=== PATIENT | male | born 1955 | race Caucasian/White ===

== ENCOUNTER 2016-10-07 02:35 | Emergency (ER) | payer BC ==
[2016-10-07] MEDS ORDERED: ASPIRIN 81 MG CHEWABLE TAB PO ONE (02:39)
--- NOTE | 2016-10-07 02:51 | CPEKG ---
Heart Rate: 80 RR Interval: 750 P-R Interval: 180 QRSD Interval: 106 QT Interval: 456 QTC Interval: 527 P Roxana: 45 QRS Roxana: 9 T Wave Roxana: 89 EKG Severity - ABNORMAL ECG - EKG Impression: SINUS RHYTHM EKG Impression: PROLONGED QT INTERVAL EKG Impression: No acute ischemic changes; baseline artifact Electronically Signed By: Mar Jett 07-Oct-2016 05:11:45
[2016-10-07 02:56] LABS: % IMMATURE GRANULYOCYTES 0.5 % (0.0-1.1); ABSOLUTE IMMATURE GRANULOCYTES 0.05 10^3/uL (0.00-0.10); ADD DIFF? NO; ADD MORPH? NO; ADD SCAN? NO; ATYPICAL LYMPHOCYTE FLAG 10 (0-99); FRAGMENT RBC FLAG 0 (0-99); HEMATOCRIT 41.3 % (40.0-51.0); HEMOGLOBIN 13.8 g/dL (13.7-17.5); LEFT SHIFT FLG 10 (0-99); LIPEMIA HEMOLYSIS FLAG 80 (0-99); MEAN CELL HEMOGLOBIN 29.9 pg (27.9-34.1); MEAN CELL HEMOGLOBIN CONCENTR. 33.4 g/dL (32.4-36.7); MEAN CELL VOLUME 89.6 fL (81.5-99.8); MEAN PLATELET VOLUME 9.6 fL (8.7-11.7); PLATELET CLUMPS FLAG 0 (0-99); PLATELET COUNT 239 10^3/uL (150-400); RED BLOOD CELL COUNT 4.61 10^6/uL (4.40-6.38); RED CELL DISTRIBUTION WIDTH 12.9 % (11.5-15.2)
[2016-10-07] MEDS ORDERED: NITROGLYCERIN 0.4 MG BTL SL ONE ×2 (03:03→03:06)
[2016-10-07] MEDS ORDERED: NS 1,000 ML IV ONE (03:04)
[2016-10-07 03:07] LABS: INR 0.97 (0.83-1.16); PROTIME(PATIENT) 12.6 SEC (12.0-15.0)
[2016-10-07 03:08] LABS: APTT 26.1 SEC (23.0-38.0)
--- NOTE | 2016-10-07 03:12 | EDPHY ---
H & P Stated Complaint: Right chest and back pain Time Seen by Provider: 10/07/16 02:38 HPI/ROS: This 61-year-old male with past medical history of hyperlipidemia and diabetes mellitus, here visiting relatives from [place], presents to the emergency department tonight with his for complaints of right-sided back pain radiating up into his neck and into his right chest since 10:00 p.m. last evening. He rates the discomfort at 8/10. The pain also causes his chest to feel tight diffusely and diffuse abdominal discomfort as well. He took acetaminophen and tried to sleep but the discomfort is worse when he lies flat. He has some mild shortness of breath with the pain. He has no nausea or vomiting. He has felt diaphoretic. He denies jaw pain or pain in his shouders or arms. He has not had a fever, chills, cough, dysuria or diarrhea. He denies recent illness. Eight years ago he had similar neck pain and had a cardiac workup including a cardiac catheterization which was negative. REVIEW OF SYSTEMS: Constitutional: No fever, no chills. Eyes: No discharge. ENT: No sore throat. Respiratory: No cough. Cardiac: No palpitations. Gastrointestinal: No nausea, no vomiting. Genitourinary: No hematuria or dysuria. Musculoskeletal: No calf pain or swelling. Skin: No rashes. Neurological: No headache. The remainder of the review of systems is negative. Source: Patient Exam Limitations: No limitations - Medical/Surgical History PMH: PMH: High cholesterol, DM PSH: Belen, Vasectomy, Tonsillectomy FH: Father- history of CABG (no premature CAD); Mother -Emphysema, CHF NKDA; no contrast allergy Meds: Lipitor, Metformin (does not take phosphodiesterase inhibitors, does not take daily aspirin) Hx Asthma: No Hx Chronic Respiratory Disease: No Hx Diabetes: Yes Hx Cardiac Disease: No Hx Renal Disease: No Hx Cirrhosis: No Hx Alcoholism: No Hx HIV/AIDS: No Hx Splenectomy or Spleen Trauma: No - Family History Significant Family History: Heart disease, COPD (emphysema), Other (No premature CAD) - Social History Smoking Status: Never smoked Alcohol Use: Occasionally Drug Use: None Additional Social History: ; Lives in [place] - Physical Exam Exam: General Appearance: Alert and Oriented, moderate distress. Eyes: Pupils equal and round no pallor or injection. ENT, Mouth: Mucous membranes are moist. No erythema or exudate. Uvula midline. Neck: supple, no JVD, no meningeal signs. No increase in discomfort with palpation. Respiratory: There are no retractions, lungs are clear to auscultation. No rales, rhonchi or wheezing. Cardiovascular: Regular rate and rhythm. No murmurs, gallops or rubs. Gastrointestinal: Abdomen is slightly distended and mildly diffuse uncomfortable to palpation, no masses, bowel sounds normal. Neurological: Awake and alert, sensory and motor exams grossly normal. Skin: Warm and dry, no rashes. Musculoskeletal: No clubbing, cyanosis or edema. No calf swelling, warmth, cords or erythema. Moves all extremities well. Neuro: CN II-XII GI, non-focal exam. DIFFERENTIAL DIAGNOSIS: After history and physical exam differential diagnosis was considered for Chest pain including but not limited to myocardial ischemia, pneumothorax, pulmonary embolus, aortic dissection, chest wall pain, pleural inflammation and pulmonary infectious causes and less likely intra-abdominal causes such as bowel obstruction, perforated viscus, intra-abdominal inflammatory conditions. Constitutional: Initial Vital Signs Temperature (C) 97.5 F 10/07/16 02:36 Heart Rate 84 10/07/16 02:36 Respiratory Rate 16 10/07/16 02:36 Blood Pressure 168/94 H 10/07/16 02:36 O2 Sat (%) 94 10/07/16 02:36 O2 Delivery Mode Nasal Cannula O2 (L/minute) 2 Allergies/Adverse Reactions: No Known Allergies Allergy (Unverified 10/07/16 02:36) Home Medications: Medication Instructions Recorded Diazepam [Valium 5 MG (*)] 5 mg PO TID PRN #21 tab 10/07/16 Metformin HCl 10/07/16 SIMVASTATIN 10/07/16 Medical Decision Making - Diagnostics EKG Interpretation: EKG 1. At 2:42 a.m. shows a normal sinus rhythm with a heart rate of 80 and a prolonged QTc interval of 527. There is baseline artifact but no definite ST T wave changes. EKG 2. Performed at 3:10 a.m. shows a normal sinus rhythm with a heart rate of 76 and nonspecific intraventricular conduction delay and no acute ischemic changes. QTc 500. Imaging Results: CXR: NAD, No infiltrate, No effusion, nml mediastinum, nml heart size, no pneumothorax, no free air under the diaphragm as read by me. Final report pending. Preliminary verbal report given to me by radiologist, Dr. Rees- CT angiogram of the chest/thorax and abdomen/pelvis is basically unremarkable for acute process. It shows a mildly dilated ascending aorta. The abdominal aorta is tortuous but not dilated. There is mild atelectasis but no pneumothorax, no effusions. There is mild cardiomegaly. No hydronephrosis. There are no radiographic findings that would account for this patient's symptoms. Imaging: Discussed imaging studies w/ electrical line worker Radiologist (Dr. Rees), I viewed and interpreted images myself ED Course/Re-evaluation: Patient was seen and examined, vital signs reviewed. The patient was hypertensive upon arrival. O2 sats were 94%, heart rate in the 80s. He was given aspirin to chew and morphine IV push for pain. His pain went from an 8/10 to a 6/10. He received 1 sublingual nitroglycerin tablet without any change in his symptoms. EKG 1. And 2. Done 30 minutes apart showed no acute ischemic changes. CBC, comprehensive metabolic panel, lipase, magnesium, troponin, and D -dimer are unremarkable with the exception of an elevated glucose at 233mg/dl and slightly elevated Total Bilirubin at 1.6mg/dl. A CT angio of chest/abdomen/ pelvis shows no obvious acute process that would account for the patient's discomfort. A second 2-hr Troponin was negative. All the studies were reviewed with the patient and his . After another 2mg of Morphine the patient decided that he felt well enough to be discharged. He will be given a prescription for Valium for both muscle relaxation and stress related symptoms. He should follow up with his primary care provider when he returns home to [place] in approximately 10-12 days. He should return to the emergency room immediately if symptoms worsen or change or any further problems or concerns. - Data Points Laboratory Results: Laboratory Results 10/07/16 02:49 10/07/16 02:49 10/07/16 10/07/16 10/07/16 04:50 02:49 02:49 WBC RBC Hgb Hct MCV MCH MCHC RDW Plt Count MPV Neut % (Auto) Lymph % (Auto) [place] % (Auto) Eos % (Auto) Baso % (Auto) Nucleat RBC Rel Count Absolute Neuts (auto) Absolute Lymphs (auto) Absolute Monos (auto) Absolute Eos (auto) Absolute Basos (auto) Absolute Nucleated RBC Immature Gran % Immature Gran # PT INR APTT D-Dimer Sodium 141 mEq/L mEq/L (134-144) Potassium 4.1 mEq/L mEq/L (3.5-5.2) Chloride 103 mEq/L mEq/L (97-110) Carbon Dioxide 25 mEq/l mEq/l (22-31) Anion Gap 13 mEq/L mEq/L (8-16) BUN 17 mg/dL mg/dL (7-23) Creatinine 0.8 mg/dL mg/dL (0.7-1.3) Estimated GFR > 60 Glucose 233 mg/dL H mg/dL (70-100) Calcium 9.3 mg/dL mg/dL (8.5-10.4) Magnesium 1.6 mg/dL mg/dL (1.6-2.3) Total Bilirubin 1.6 mg/dL H mg/dL (0.1-1.4) Conjugated Bilirubin 0.4 mg/dL mg/dL (0.0-0.5) Unconjugated Bilirubin 1.2 mg/dL H mg/dL (0.0-1.1) AST 19 IU/L IU/L (17-59) ALT 31 IU/L IU/L (21-72) Alkaline Phosphatase 118 IU/L IU/L (38-126) Troponin I < 0.012 ng/mL ng/mL < 0.012 ng/mL ng/mL (0-0.034) (0-0.034) Total Protein 6.8 g/dL g/dL (6.3-8.2) Albumin 4.0 g/dL g/dL (3.5-5.0) Lipase 78.0 IU/L IU/L (23-300) 10/07/16 10/07/16 02:49 02:49 WBC 10.89 10^3/uL H 10^3/uL (3.80-9.50) RBC 4.61 10^6/uL 10^6/uL (4.40-6.38) Hgb 13.8 g/dL g/dL (13.7-17.5) Hct 41.3 % % (40.0-51.0) MCV 89.6 fL fL (81.5-99.8) MCH 29.9 pg pg (27.9-34.1) MCHC 33.4 g/dL g/dL (32.4-36.7) RDW 12.9 % % (11.5-15.2) Plt Count 239 10^3/uL 10^3/uL (150-400) MPV 9.6 fL fL (8.7-11.7) Neut % (Auto) 71.5 % % (39.3-74.2) Lymph % (Auto) 18.1 % % (15.0-45.0) [place] % (Auto) 7.0 % % (4.5-13.0) Eos % (Auto) 2.3 % % (0.6-7.6) Baso % (Auto) 0.6 % % (0.3-1.7) Nucleat RBC Rel Count 0.0 % % (0.0-0.2) Absolute Neuts (auto) 7.80 10^3/uL H 10^3/uL (1.70-6.50) Absolute Lymphs (auto) 1.97 10^3/uL 10^3/uL (1.00-3.00) Absolute Monos (auto) 0.76 10^3/uL 10^3/uL (0.30-0.80) Absolute Eos (auto) 0.25 10^3/uL 10^3/uL (0.03-0.40) Absolute Basos (auto) 0.06 10^3/uL 10^3/uL (0.02-0.10) Absolute Nucleated RBC 0.00 10^3/uL 10^3/uL (0-0.01) Immature Gran % 0.5 % % (0.0-1.1) Immature Gran # 0.05 10^3/uL 10^3/uL (0.00-0.10) PT 12.6 SEC SEC (12.0-15.0) INR 0.97 (0.83-1.16) APTT 26.1 SEC SEC (23.0-38.0) D-Dimer < 0.27 ug/mLFEU ug/mLFEU (0.00-0.50) Sodium Potassium Chloride Carbon Dioxide Anion Gap BUN Creatinine Estimated GFR Glucose Calcium Magnesium Total Bilirubin Conjugated Bilirubin Unconjugated Bilirubin AST ALT Alkaline Phosphatase Troponin I Total Protein Albumin Lipase Medications Given: Discontinued Medications Aspirin (Aspirin) 324 mg PO EDNOW ONE Stop: 10/07/16 02:40 Last Admin: 10/07/16 02:55 Dose: 324 mg Sodium Chloride (Ns) 1,000 mls @ 0 mls/hr IV ONCE ONE; KVO PRN Reason: Protocol Stop: 10/07/16 03:05 Last Admin: 10/07/16 03:06 Dose: 1,000 mls Morphine Sulfate (Morphine) 4 mg IVP EDNOW ONE Stop: 10/07/16 02:43 Last Admin: 10/07/16 02:56 Dose: 4 mg Morphine Sulfate (Morphine) 2 mg IVP EDNOW ONE Stop: 10/07/16 04:34 Last Admin: 10/07/16 04:42 Dose: 2 mg Nitroglycerin (Nitrostat) 0.4 mg SL EDNOW ONE Stop: 10/07/16 03:04 Last Admin: 10/07/16 03:07 Dose: 0.4 mg Departure - Departure Disposition: Home, Routine, Self-Care Clinical Impression: Chest pain of uncertain etiology Condition: Good Instructions: Diazepam (By mouth), Radiological Ionic Contrast Media (By injection), Chest Pain (ED), Acute Abdominal Pain (ED), Thoracic Pain (ED) Additional Instructions: Consider taking Aspirin 81 mg a day until you see your regular provider in [place]. Call this morning to arrange an appointment with your primary care provider when you return home. Return to the ER if symptoms change or worsen or any other concerns. Referrals: Patient,NotPresent [Primary Care Provider] - As per Instructions Prescriptions: Diazepam [Valium 5 MG (*)] 5 mg PO TID PRN #21 tab PRN Reason: Spasms
--- NOTE | 2016-10-07 03:12 | CPEKG ---
Heart Rate: 76 RR Interval: 789 P-R Interval: 180 QRSD Interval: 110 QT Interval: 444 QTC Interval: 500 P Joes: 34 QRS Joes: 13 T Wave Joes: 64 EKG Severity - ABNORMAL ECG - EKG Impression: SINUS RHYTHM EKG Impression: NONSPECIFIC INTRAVENTRICULAR CONDUCTION DELAY EKG Impression: No acute ischemic changes. Electronically Signed By: Mar Jett 07-Oct-2016 05:12:33
[2016-10-07 03:22] LABS: TROPONIN I < 0.012 ng/mL (0-0.034)
[2016-10-07 03:26] LABS: ALANINE AMINOTRANSFERASE 31 IU/L (21-72); ALKALINE PHOSPHATASE 118 IU/L (38-126); ANION GAP 13 mEq/L (8-16); ASPARTATE AMINOTRANSFERASE 19 IU/L (17-59); BILIRUBIN,TOTAL 1.6 mg/dL (0.1-1.4); BILIRUBIN-CONJUGATED 0.4 mg/dL (0.0-0.5); BILIRUBIN-UNCONJUGATED 1.2 mg/dL (0.0-1.1); CALCIUM 9.3 mg/dL (8.5-10.4); CARBON DIOXIDE 25 mEq/l (22-31); CHLORIDE 103 mEq/L (97-110); CREATININE 0.8 mg/dL (0.7-1.3); GLOMERULAR FILTRATION RATE > 60; GLUCOSE 233 mg/dL (70-100); POTASSIUM 4.1 mEq/L (3.5-5.2); SODIUM 141 mEq/L (134-144); TOTAL PROTEIN 6.8 g/dL (6.3-8.2)
[2016-10-07] MEDS ORDERED: IOPAMIDOL (ISOVUE 370) 100 ML BTL IV ONE (03:29)
[2016-10-07 04:05] VITALS: RESP 16; TEMP 97.9
[2016-10-07] MEDS ORDERED: DIAZEPAM 5 MG PREPACK#4 BTL TAKEHOME ONE (05:28)
[2016-10-07 05:41] VITALS: BP 114/81; PULSE 78; O2SAT 94
== END 2016-10-07 05:43 | disposition home or self-care (01) ==
LOC: CED 02:35
DX: R07.9 Chest pain, unspecified (principal); E11.9 Type 2 diabetes mellitus without complications; E86.9 Volume depletion, unspecified; Z79.84 Long term (current) use of oral hypoglycemic drugs
CPT/HCPCS: 71010-PO; 71275-PO; 80048-PO; 80076-PO; 83690-PO; 83735-PO; 84484-PO; 85025-PO; 85378-PO; 85610-PO; 85730-PO; 96374; Q9967